=== PATIENT | male | born 1945 | race Caucasian/White ===

== ENCOUNTER → 2023-07-05 07:36 | Outpatient (REF) | payer MEDICARE, OTHER, SELFPAY ==
[2023-07-05 09:31] LABS: % Basophils 0.5 % (0-2); % Eosinophils 4.3 % (0-6); % Immature Granulocytes 0.2 % (0-0.5); % Lymphocytes 27.6 % (20.5-51.1); % Monocytes 13.8 % (1.7-9.3); % Neutrophils 53.6 % (42.2-75.2); Absolute Eosinophils 0.2 10^3/uL (0-0.7); Absolute Lymphocytes 1.2 10^3/uL (1.2-3.4); Absolute Monocytes 0.6 10^3/uL (0.1-0.6); Absolute Neutrophils 2.3 10^3/uL (1.4-6.5); Hematocrit 44.5 % (39.0-52.0); Hemoglobin 15.2 g/dL (13.0-18.0); Mean Corp Hgb Conc. 34.2 g/dL (33.0-37.0); Mean Corpuscular Hgb 32.8 pg (27.0-31.0); Mean Corpuscular Volume 95.9 fL (80.0-94.0); Mean Platelet Volume 9.3 fL (7.4-10.4); Nucleated Red Blood Cells % 0 % (-); Platelet Count 193 10^3/uL (130-400); Red Blood Cell Count 4.64 10^6/uL (4.70-6.10); Red Cell Dist. Width 13.3 % (11.5-14.5); White Blood Cell Count 4.2 10^3/uL (4.8-10.8)
[2023-07-05 09:46] LABS: Urine Albumin Trace (Neg - Trace); Urine Bilirubin Negative (Negative); Urine Character Clear (Clear); Urine Color Yellow; Urine Glucose Negative (Negative); Urine Ketone Negative (Negative); Urine Leukocyte 1+ (Negative); Urine Nitrite Negative (Negative); Urine Occult Blood Negative (Negative); Urine Specific Gravity 1.015 (<1.030); Urine Urobilinogen Negative (Neg - 1+)
[2023-07-05 10:03] LABS: ALT (SGPT) 21 U/L (0-50); AST (SGOT) 43 U/L (17-59); Albumin 4.2 g/dl (3.5-5.0); Alkaline Phosphatase 68 U/L (38-126); Blood Urea Nitrogen 20 mg/dl (9-20); Calcium 9.9 mg/dl (8.4-10.2); Carbon Dioxide 27 mmol/L (22-30); Chloride 101 mmol/L (98-107); Glucose 100 mg/dl (70-99); Potassium 4.4 mmol/L (3.5-5.1); Sodium 139 mmol/L (135-145); Total Bilirubin 1.4 mg/dl (0.2-1.3); Total Cholesterol 170 mg/dl (50-199); Total Protein 6.8 g/dl (6.3-8.2); Triglyceride 82 mg/dl (10-149); Very Low Density Lipoprotein 16 mg/dl (0-30); eGFR > 60.00
[2023-07-05 10:14] LABS: Free T4 1.13 ng/dl (0.78-2.19)
[2023-07-05 10:27] LABS: Urine Bacteria Moderate (Negative); Urine Red Blood Cell 0-2 /HPF (0-2); Urine White Cell 50-60 /HPF (0-5)
[2023-07-05 10:30] LABS: HDL Cholesterol 108 mg/dl; LDL Cholesterol, Calculated 46 mg/dl
[2023-07-05 10:57] LABS: TSH 0.39 uIU/ml (0.47-4.68)
[2023-07-06 23:44] LABS: PSA Total 4.7 ng/mL (0.0-4.0)
== END ==
LOC: HWLAB 07:36
PROVIDERS: ATTENDING PHYSICIAN Family Medicine
DX: E78.00 Pure hypercholesterolemia, unspecified (principal); N40.0 Benign prostatic hyperplasia without lower urinary tract symptoms; E03.9 Hypothyroidism, unspecified
CPT/HCPCS: 36415; 80053; 80061; 81003; 81015; 84153; 84154; 84439; 84443; 85025

== ENCOUNTER 2023-08-31 07:47 | Emergency (ER) | payer MEDICARE, OTHER, SELFPAY ==
[2023-08-31 07:50] VITALS: BP 132/56
--- NOTE | 2023-08-31 07:59 | ED.GENMED ---
History of Present Illness
General
Chief Complaint: Fainting Sensation
Time Seen by Provider: 08/31/23 07:49
Travel History
Have you had any contact with someone who has COVID-19?: No
Do you have any symptoms of coronavirus? Fever > 100 degrees, chills, cough, shortness of breath, sore throat, loss of taste or smell, muscle aches, or headache?: No
History of Present Illness
History of Present Illness:
78-year-old male with history of coronary artery disease status post CABG and repeat stenting, sick sinus syndrome status post pacemaker, hypertension, and hyperlipidemia presents to the emergency department for evaluation of a near syncopal event
that occurred after his routine gym workout this morning. He felt dizziness coming on and was able to lower himself to the ground without falling. Denies complete loss of consciousness. Feels well currently. Denies chest pain or shortness of
breath. Reports having a glass of orange juice prior to his workout today. No recent illnesses. Does note that he is currently on antibiotics prophylactically after recent scalp Mohs surgery, denies any diarrhea associated with this. Otherwise
no new medications
Past History
Past History
ED Past Medical History: CAD, Hypercholesterolemia, Hypothyroidism and Other (Glaucoma, Mobitz type I Wenckebach, herniated disc)
ED Past Surgical History: Cardiac (CABG �3 2000, PCI stent to 90% left main 06/22/2016 EF 54%)
Social History
Tobacco: Non-smoker
Alcohol: Occasional
Drug: None
Personal:
Living: with family
Review of Systems
Review of Systems
Allergies reviewed?: Yes
All Other Systems: ROS reviewed and negative except as documented in HPI and ROS
Phy Exam
Physical Exam
Physical Exam:
GEN: Well appearing, NAD, WDWN
HEENT: Oral mucosa moist, no scleral icterus, well-approximated incisions with intact external sutures to the vertex of the scalp from prior Mohs surgery, no significant erythema or discharge
Cardiac: Regular rate and rhythm, no murmurs
Lung: No respiratory distress, no tachypnea, lungs clear to auscultation bilaterally
MSK: No gross deformity or injuries
Skin: Good color, no pallor or jaundice, no rashes
Neuro: AO x3, moves all extremities freely, cranial nerves II through XII grossly intact
Psych: Calm, cooperative
Course
Orders/Labs/Results
Orders:
Orders
08/31/23 07:48
EKG [Electrocardiogram (*1)] Urgent
Reason for Study: Fatigue / Weakness
EKG- Treatment ONCE
08/31/23 08:00
Complete Blood Count/With Diff Urgent
Comprehensive Metabolic Panel Urgent
08/31/23 08:42
0.9% Sodium Chloride 500 ml [Nss] 500 ml IV BOLUS
Abnormal Lab Results
08/31/23
08:00
RBC 4.37 L 10^6/uL
(4.70-6.10)
MCV 99.3 H fL
(80.0-94.0)
MCH 33.0 H pg
(27.0-31.0)
Absolute Lymphs (auto) 1.1 L 10^3/uL
(1.2-3.4)
Absolute Monos (auto) 0.7 H 10^3/uL
(0.1-0.6)
Lymphocytes % 17.5 L %
(20.5-51.1)
Monocytes % 10.3 H %
(1.7-9.3)
Glucose 144 H mg/dl
(70-99)
08/31/23 08:00
08/31/23 08:00
Vital Signs
Initial and Last Documented VS:
Initial Vital Signs
Temp Pulse Resp BP Pulse Ox
97.9 F 64 19 132/56 100
08/31/23 07:50 08/31/23 07:50 08/31/23 07:50 08/31/23 07:50 08/31/23 07:50
Last Documented Vital Signs
Temp Pulse Resp BP Pulse Ox
97.9 F 62 19 136/70 100
08/31/23 07:50 08/31/23 10:03 08/31/23 07:50 08/31/23 10:03 08/31/23 07:50
MDM/Problems Addressed
MDM/Problems Addressed:
Patient did have transient hypotension in the emergency department however this resolved with IV fluids. His device interrogation revealed no events associated with this near syncopal event. Likely vasovagal as it occurred after exercise.
Remained clinically stable otherwise the emergency department normal labs. Suitable for discharge to home
Comment
Comment:
EKG independently interpreted by me shows a AV paced rhythm at a rate of 63, QTc of 487
*Critical Care Note
Total Time (30-74mins, 75-104mins- exclusive of procedures): Not Applicable
ED Attending Note
-
Portions of this chart may have been created with voice recognition software.� Occasional wrong word or��sound alike� substitutions may have occurred due to the inherent limitations of voice recognition software.
Discharge Plan
Departure
Patient Disposition: Home (Routine Discharge)
Date of Disposition: 08/31/23
Time of Disposition: 09:38
Patient with high blood pressure during this ER visit?: No
Discharge Problem:
Near syncope
Instructions: Near Fainting (DC)
Prescriptions:
No Action
simvastatin 10 MG tablet
10 mg PO QPM
coenzyme [id number] [Co Q-10 (with Vit E)] 1 EACH capsule
1 cap PO DAILY
nitroglycerin 0.4 MG tablet, sublingual
0.4 mg sublingual [id number] PRN (Reason: chest pain) Qty: 25 2RF
isosorbide mononitrate 60 MG tablet extended release 24 hr
60 mg PO DAILY
levothyroxine 88 MCG tablet
88 mcg PO DAILY
magnesium oxide 500 MG tablet
500 mg PO DAILY
cholecalciferol (vitamin D3) 1,000 UNITS tablet
1,000 units PO DAILY
clopidogrel 75 MG tablet
75 mg PO QPM
vitamin K2 40 MCG tablet
40 mcg PO DAILY
tamsulosin 0.4 MG capsule
0.4 mg PO QPM
docusate sodium 100 MG capsule
100 mg PO DAILY
B-complex with vitamin C 1 CAPLET tablet
1 cap PO DAILY
vitamin E (dl, acetate) 100 UNITS capsule
100 units PO DAILY
doxycycline hyclate 100 MG capsule
100 mg PO Q12 6 Days Qty: 12 0RF
cefuroxime axetil 500 MG tablet
500 mg PO BID 6 Days Qty: 12 0RF
doxycycline hyclate 100 mg tablet
100 mg PO BID Qty: 14 0RF
Referrals:
Rodger Vo MD [Family Provider] -
Interventions
Interventions:
*Risk Screen - Suicide Last Done: 08/31/23 07:50
*General Assessment Last Done: 08/31/23 07:50
*Neglect/Abuse Screening Last Done: 08/31/23 07:50
ED- Fall Risk Assessment Last Done: 08/31/23 07:55
*ED COVID-19 Vaccine History Last Done: 08/31/23 07:50
*Nursing Disposition Last Done: 08/31/23 10:32
ED- Cardiac Assessment Last Done: 08/31/23 07:55
ED- Neurological Assessment Last Done: 08/31/23 07:55
Discharge Date and Time
Discharge Date/Time: 08/31/23 10:34
Print Language: [place]
[2023-08-31 08:23] LABS: % Basophils 0.5 % (0-2); % Eosinophils 2.5 % (0-6); % Immature Granulocytes 0.3 % (0-0.5); % Lymphocytes 17.5 % (20.5-51.1); % Monocytes 10.3 % (1.7-9.3); % Neutrophils 68.9 % (42.2-75.2); Absolute Eosinophils 0.2 10^3/uL (0-0.7); Absolute Lymphocytes 1.1 10^3/uL (1.2-3.4); Absolute Monocytes 0.7 10^3/uL (0.1-0.6); Absolute Neutrophils 4.4 10^3/uL (1.4-6.5); Hematocrit 43.4 % (39.0-52.0); Hemoglobin 14.4 g/dL (13.0-18.0); Mean Corp Hgb Conc. 33.2 g/dL (33.0-37.0); Mean Corpuscular Volume 99.3 fL (80.0-94.0); Mean Platelet Volume 9.3 fL (7.4-10.4); Nucleated Red Blood Cells % 0 % (-); Platelet Count 207 10^3/uL (130-400); Red Blood Cell Count 4.37 10^6/uL (4.70-6.10); Red Cell Dist. Width 13.2 % (11.5-14.5); White Blood Cell Count 6.3 10^3/uL (4.8-10.8)
[2023-08-31 08:36] LABS: ALT (SGPT) 23 U/L (0-50); AST (SGOT) 38 U/L (17-59); Albumin 4.5 g/dl (3.5-5.0); Alkaline Phosphatase 70 U/L (38-126); Blood Urea Nitrogen 19 mg/dl (9-20); Calcium 9.6 mg/dl (8.4-10.2); Carbon Dioxide 29 mmol/L (22-30); Chloride 100 mmol/L (98-107); Estimated Creatinine Clearance 49 ml/min; Glucose 144 mg/dl (70-99); Potassium 4.5 mmol/L (3.5-5.1); Sodium 136 mmol/L (135-145); Total Bilirubin 1.2 mg/dl (0.2-1.3); Total Protein 7.2 g/dl (6.3-8.2); eGFR > 60.00
[2023-08-31] MEDS: NSS 500 IV (08:55)
[2023-08-31 10:03] VITALS: BP 136/70
== END 2023-08-31 10:34 | disposition home or self-care (01) ==
LOC: EMR 07:47
PROVIDERS: Physician Assistant; EMERGENCY PHYSICIAN Emergency Medicine; FAMILY PHYSICIAN Family Medicine
DX: R55 Syncope and collapse (principal); I25.10 Atherosclerotic heart disease of native coronary artery without angina pectoris; I10 Essential (primary) hypertension; E78.00 Pure hypercholesterolemia, unspecified; Z95.1 Presence of aortocoronary bypass graft; Z95.0 Presence of cardiac pacemaker
CPT/HCPCS: 99284; 96360; 93288; 80053; 85025; 93005

== ENCOUNTER 2024-03-27 07:55 | Emergency (ER) | payer MEDICARE, OTHER, SELFPAY ==
[2024-03-27 08:06] VITALS: BP 133/65
[2024-03-27 08:09] VITALS: BP 133/65
[2024-03-27 08:14] VITALS: BMI 24.7
--- NOTE | 2024-03-27 08:22 | ED.GENMED ---
History of Present Illness
<KELBY Chavis - Last Filed: 03/27/24 13:34>
General
Chief Complaint: Fainting/Passed Out
Source: patient
Exam Limitations: none
Time Seen by Provider: 03/27/24 08:05
Nursing documentation reviewed up to this point in time: agreed with
History of Present Illness
History of Present Illness:
Patient is an 78-year-old male who presents to the ER via EMS for syncopal episode. Patient was at the gym doing his workout like normal and afterward was talking to his friends and then started to walk to get his coat on. He started to feel
lightheaded like he was in a pass out so he took a drink of water and then apparently passed out and hit his left ear on the treadmill.
Patient presents with a laceration to his left ear. He presents awake alert. He reports he felt like he was going to pass out and that is what he took to drink water. He denies any headache. He denies any chest pain or shortness breath prior to
passing out. He did not eat this morning but normally does not eat prior to going to the gym. He is on close clopidogrel.
Past History
<KELBY Chavis - Last Filed: 03/27/24 13:34>
Past History
ED Past Medical History: CAD, Hypercholesterolemia, Hypothyroidism and Other (Glaucoma, Mobitz type I Wenckebach, herniated disc)
ED Past Surgical History: Cardiac (CABG �3 2000, PCI stent to 90% left main 06/22/2016 EF 54%)
Social History
Tobacco: Non-smoker
Alcohol: Occasional
Drug: None
Personal:
Living: with family
Review of Systems
<KELBY Chavis - Last Filed: 03/27/24 13:34>
Review of Systems
Allergies reviewed?: Yes
Constitutional: Reports no symptoms; Denies fever, fatigue or chills
EENT: Reports no symptoms
Respiratory: Reports no symptoms
Cardiac: Reports syncope; Denies chest pain, diaphoresis or palpitations
ABD/GI: Reports no symptoms
: Reports no symptoms
Musculoskeletal: Reports no symptoms
Skin: Reports no symptoms
Neurological: Reports no symptoms
Psychiatric: Reports no symptoms
Phy Exam
<KELBY Chavis - Last Filed: 03/27/24 13:34>
General Physical Exam
General Presentation: no apparent distress
General age: appears stated age
General Skin: warm and dry
General Habitus: elderly
General Mental: alert
General Hydration: appears well hydrated
ENT Exam
ENT Exam: other (+ oozing abrasion to inner ear )
Additional ENT: + hematoma to sreedhar
Cardiovascular Exam
Cardiovascular Exam: regular rate/rhythm, no murmur and normal peripheral pulses
Pulmonary Exam
Pulmonary Exam: lungs clear and no respiratory distress
Neurological Exam
Neurological Exam: alert and oriented x3
Musculoskeletal Exam
Musculoskeletal Exam: full ROM
Skin Exam
Skin Exam: normal color and warm/dry
Psychiatric Exam
Psychiatric Exam: normal mood/affect
Course
<KELBY Chavis - Last Filed: 03/27/24 13:34>
Orders/Labs/Results
Orders:
Orders
03/27/24 08:04
EKG [Electrocardiogram (*1)] Urgent
Reason for Study: Syncope
EKG- Treatment ONCE
03/27/24 08:17
CT Head W/o Iv Contrast Urgent
Comment:
Reason For Exam: trauma/syncope
03/27/24 08:20
CT Cervical Spine W/o Iv Contr Urgent
Comment:
Reason For Exam: trauma
03/27/24 08:25
Complete Blood Count/With Diff Urgent
03/27/24 08:55
Comprehensive Metabolic Panel Urgent
Abnormal Lab Results
03/27/24 03/27/24
08:25 08:55
WBC 4.5 L 10^3/uL
(4.8-10.8)
RBC 4.17 L 10^6/uL
(4.70-6.10)
MCV 99.3 H fL
(80.0-94.0)
MCH 33.6 H pg
(27.0-31.0)
Absolute Lymphs (auto) 1.0 L 10^3/uL
(1.2-3.4)
Monocytes % 10.6 H %
(1.7-9.3)
Carbon Dioxide 31 H mmol/L
(22-30)
Glucose 112 H mg/dl
(70-99)
03/27/24 08:25
03/27/24 08:55
Vital Signs
Initial and Last Documented VS:
Initial Vital Signs
Pulse Ox
96
03/27/24 08:01
Last Documented Vital Signs
Temp Pulse Resp BP Pulse Ox
97.6 F 67 13 135/74 98
03/27/24 08:06 03/27/24 10:15 03/27/24 10:15 03/27/24 10:40 03/27/24 10:40
Youth Nutritional Monitor consulted with Physician
Youth Nutritional Monitor consulted with physician?: Yes
Name of Physician Consulted: Daiana
<Daniel Ahmadi MD - Last Filed: 03/27/24 11:39>
Orders/Labs/Results
Orders:
Orders
03/27/24 08:04
EKG [Electrocardiogram (*1)] Urgent
Reason for Study: Syncope
EKG- Treatment ONCE
03/27/24 08:17
CT Head W/o Iv Contrast Urgent
Comment:
Reason For Exam: trauma/syncope
03/27/24 08:20
CT Cervical Spine W/o Iv Contr Urgent
Comment:
Reason For Exam: trauma
03/27/24 08:25
Complete Blood Count/With Diff Urgent
03/27/24 08:55
Comprehensive Metabolic Panel Urgent
Abnormal Lab Results
03/27/24 03/27/24
08:25 08:55
WBC 4.5 L 10^3/uL
(4.8-10.8)
RBC 4.17 L 10^6/uL
(4.70-6.10)
MCV 99.3 H fL
(80.0-94.0)
MCH 33.6 H pg
(27.0-31.0)
Absolute Lymphs (auto) 1.0 L 10^3/uL
(1.2-3.4)
Monocytes % 10.6 H %
(1.7-9.3)
Carbon Dioxide 31 H mmol/L
(22-30)
Glucose 112 H mg/dl
(70-99)
03/27/24 08:25
03/27/24 08:55
Vital Signs
Initial and Last Documented VS:
Initial Vital Signs
Pulse Ox
96
03/27/24 08:01
Last Documented Vital Signs
Temp Pulse Resp BP Pulse Ox
97.6 F 67 13 135/74 98
03/27/24 08:06 03/27/24 10:15 03/27/24 10:15 03/27/24 10:40 03/27/24 10:40
<KELBY Chavis - Last Filed: 03/27/24 13:34>
MDM/Problems Addressed
Differential Diagnosis Includes:
Not limited to vasovagal syncope, ear abrasion/laceration/hematoma dehydration, head injury
MDM/Problems Addressed:
Patient is an 6-year-old male who was at the gym was done his workout talking to his friend and when he was walking he felt lightheaded took a drink of water and passed out. He hit his left ear on a treadmill and sustained an abrasion/laceration.
Patient does prep with a hematoma to this ear. He denies any headache no nausea vomiting no chest pain or shortness of breath prior to fall. CT head and cervical spine are negative. Ear was irrigated this will need drainage evacuation of hematoma
and he is on Plavix. I did discuss this with the ENT. Regarding his syncopal episode we will check and interrogate pacemaker however patient is well-appearing he did not eat prior to the gym likely component of this and/vagal episode. Will
interrogate pacemaker then plan for discharge. I did ENT is able to see patient in his office. Patient will get his car and then drive directly to the ENTs office.
Device check functioning appropriately no arrhythmias.
Will d/c w/ ENT and cardiology follow up.
<KELBY Chavis - Last Filed: 03/27/24 13:34>
*Radiology
Radiology exam reviewed: radiology read reviewed
*Pulse Oximetry
Patient hypoxic: no
*EKG
Comparison EKG: no changes
Heart Rate: 63
Rate: normal
Rhythm: other (AV paced)
*Critical Care Note
Total Time (30-74mins, 75-104mins- exclusive of procedures): Not Applicable
<KELBY Chavis - Last Filed: 03/27/24 13:34>
Patient Management
Discussion with other providers: Street Light Lamp Cleaner (ENT)
ED Attending Note
<KELBY Chavis - Last Filed: 03/27/24 13:34>
-
Portions of this chart may have been created with voice recognition software.� Occasional wrong word or��sound alike� substitutions may have occurred due to the inherent limitations of voice recognition software.
<Daniel Ahmadi MD - Last Filed: 03/27/24 11:39>
ED Attending Note
Patient seen and examined by attending physician: Yes
ED Attending Note:
I have seen and evaluated the patient with a [id number] encounter. I have spoken to the advance practicer provider and involved in the medical history, the physical exam, medical decision making.
Evaluation and management service: agree unless noted differently below.
Results interpretation: agree unless noted differently below.
Focused HPI: 78-year-old male with history as documented notable for CAD status post CABG on dual antiplatelet therapy (aspirin/Plavix) who presents to the emergency room for evaluation after syncopal event with head trauma. Patient is very active
today went to the gym and worked out for quite some time�he says he spent time lifting weights, on the treadmill, on the stair climber. He says that he did not drink enough water and that when he finished his workout and was walking out of the gym
he began to feel lightheaded and he passed out. He says that he fell forward and struck his ear on a nearby treadmill. EMS was called to bring to the hospital. He has some pain and swelling of his left ear. Denies any headache or neck pain.
Denies any back pain. Denies any chest pain or abdominal pain. He denies any pain in his extremities. Denies any numbness or weakness in his extremities. He denies any palpitations, chest pain, shortness of breath preceding his syncopal event
and says that 'I was just dehydrated.'
Physical exam: Awake alert oriented x 3 with a GCS of 15. No cephalhematoma but patient does have left ear hematoma with significant swelling. He has no tenderness in the cervical spine. No tenderness in the thoracic or lumbar spine and no signs
of trauma the back or flank. Extremities atraumatic.
Medical Decision Makin-year-old male presents after syncopal event after finishing his workout. He had a fall with head strike and has a left ear hematoma. Sent for a CT head and cervical spine which were negative for any acute pathology.
EKG shows paced rhythm. Pacemaker interrogated and no events recorded. Labs reviewed and unremarkable. Stable for discharge from syncope perspective. 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
ENT office for drainage pressure dressing.
Discharge Plan
Departure
Patient Disposition: Home (Routine Discharge)
Date of Disposition: 03/27/24
Time of Disposition: 10:16
Patient with high blood pressure during this ER visit?: No
Condition: Fair
Covid-19: Not Applicable
Discharge Problem:
Syncope, Ear hematoma, left, Abrasion
Instructions: Syncope (Fainting) (DC), Hematoma
Prescriptions:
No Action
simvastatin 10 MG tablet
10 mg PO QPM
coenzyme [id number] E [Co Q-10 (with Vit E)] 1 EACH capsule
1 cap PO DAILY
nitroglycerin 0.4 MG tablet, sublingual
0.4 mg sublingual [id number] PRN (Reason: chest pain) Qty: 25 2RF
isosorbide mononitrate 60 MG tablet extended release 24 hr
60 mg PO DAILY
levothyroxine 88 MCG tablet
88 mcg PO DAILY
magnesium oxide 500 MG tablet
500 mg PO DAILY
cholecalciferol (vitamin D3) 1,000 UNITS tablet
1,000 units PO DAILY
clopidogrel 75 MG tablet
75 mg PO QPM
vitamin K2 40 MCG tablet
40 mcg PO DAILY
tamsulosin 0.4 MG capsule
0.4 mg PO QPM
docusate sodium 100 MG capsule
100 mg PO DAILY
B-complex with vitamin C 1 CAPLET tablet
1 cap PO DAILY
vitamin E (dl, acetate) 100 UNITS capsule
100 units PO DAILY
doxycycline hyclate 100 MG capsule
100 mg PO Q12 6 Days Qty: 12 0RF
cefuroxime axetil 500 MG tablet
500 mg PO BID 6 Days Qty: 12 0RF
doxycycline hyclate 100 mg tablet
100 mg PO BID Qty: 14 0RF
Referrals:
Myles Hodgson MD [Active] -
Brady Cleveland MD [Active] -
UNKNOWN - PT DOES,NOT KNOW [Family Provider] -
Activity Restrictions/Additional Instructions:
As discussed stay well-hydrated. Please go directly to ear nose and throat office for drainage of this left ear hematoma.
Stay well-hydrated today. 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 Please call to make an appointment today. Return if any worsening of symptoms.
Interventions
Interventions:
*Risk Screen - Suicide Last Done: 03/27/24 08:06
*General Assessment Last Done: 03/27/24 08:06
*Neglect/Abuse Screening Last Done: 03/27/24 08:06
ED- Fall Risk Assessment Last Done: 03/27/24 08:16
*ED COVID-19 Vaccine History Last Done: 03/27/24 08:17
*Nursing Disposition Last Done: 03/27/24 10:40
ED- Cardiac Assessment Last Done: 03/27/24 08:16
ED- Neurological Assessment Last Done: 03/27/24 08:16
Discharge Date and Time
Discharge Date/Time: 03/27/24 10:41
Print Language: CITIZEN OF [place]
[2024-03-27 08:43] LABS: % Basophils 0.4 % (0-2); % Immature Granulocytes 0.2 % (0-0.5); % Lymphocytes 23.1 % (20.5-51.1); % Monocytes 10.6 % (1.7-9.3); % Neutrophils 61.7 % (42.2-75.2); Absolute Eosinophils 0.2 10^3/uL (0-0.7); Absolute Monocytes 0.5 10^3/uL (0.1-0.6); Absolute Neutrophils 2.7 10^3/uL (1.4-6.5); Hematocrit 41.4 % (39.0-52.0); Mean Corp Hgb Conc. 33.8 g/dL (33.0-37.0); Mean Corpuscular Hgb 33.6 pg (27.0-31.0); Mean Corpuscular Volume 99.3 fL (80.0-94.0); Mean Platelet Volume 9.2 fL (7.4-10.4); Nucleated Red Blood Cells % 0 % (-); Platelet Count 166 10^3/uL (130-400); Red Blood Cell Count 4.17 10^6/uL (4.70-6.10); Red Cell Dist. Width 13.1 % (11.5-14.5); White Blood Cell Count 4.5 10^3/uL (4.8-10.8)
[2024-03-27 09:19] LABS: ALT (SGPT) 22 U/L (0-50); AST (SGOT) 39 U/L (17-59); Albumin 4.4 g/dl (3.5-5.0); Alkaline Phosphatase 59 U/L (38-126); Blood Urea Nitrogen 19 mg/dl (9-20); Calcium 9.8 mg/dl (8.4-10.2); Carbon Dioxide 31 mmol/L (22-30); Chloride 101 mmol/L (98-107); Estimated Creatinine Clearance 61 ml/min; Glucose 112 mg/dl (70-99); Potassium 4.5 mmol/L (3.5-5.1); Sodium 141 mmol/L (135-145); eGFR > 60.00
[2024-03-27 09:50] VITALS: BP 134/61
[2024-03-27 10:00] VITALS: BP 126/69
[2024-03-27 10:40] VITALS: BP 135/74
== END 2024-03-27 10:41 | disposition home or self-care (01) ==
LOC: EMR 07:55
PROVIDERS: Nurse Practitioner; EMERGENCY PHYSICIAN Emergency Medicine
DX: R55 Syncope and collapse (principal); S00.432A Contusion of left ear, initial encounter; S00.412A Abrasion of left ear, initial encounter; W19.XXXA Unspecified fall, initial encounter; W22.09XA Striking against other stationary object, initial encounter; E03.9 Hypothyroidism, unspecified; E78.00 Pure hypercholesterolemia, unspecified; I25.10 Atherosclerotic heart disease of native coronary artery without angina pectoris; H40.9 Unspecified glaucoma; Z79.02 Long term (current) use of antithrombotics/antiplatelets; Z95.0 Presence of cardiac pacemaker; Z95.1 Presence of aortocoronary bypass graft; Z95.5 Presence of coronary angioplasty implant and graft
CPT/HCPCS: 93288; 99285; 70450; 72125; 80053; 85025; 93005

== ENCOUNTER → 2024-07-04 07:30 | Outpatient (REF) | payer MEDICARE, OTHER, SELFPAY ==
[2024-07-04 09:40] LABS: % Basophils 0.4 % (0-2); % Eosinophils 4.2 % (0-6); % Immature Granulocytes 0.4 % (0-0.5); % Lymphocytes 25.6 % (20.5-51.1); % Monocytes 12.9 % (1.7-9.3); % Neutrophils 56.5 % (42.2-75.2); Absolute Eosinophils 0.2 10^3/uL (0-0.7); Absolute Lymphocytes 1.2 10^3/uL (1.2-3.4); Absolute Monocytes 0.6 10^3/uL (0.1-0.6); Absolute Neutrophils 2.7 10^3/uL (1.4-6.5); Hematocrit 44.4 % (39.0-52.0); Hemoglobin 14.8 g/dL (13.0-18.0); Mean Corp Hgb Conc. 33.3 g/dL (33.0-37.0); Mean Corpuscular Volume 98.9 fL (80.0-94.0); Mean Platelet Volume 9.1 fL (7.4-10.4); Nucleated Red Blood Cells % 0 % (-); Platelet Count 179 10^3/uL (130-400); Red Blood Cell Count 4.49 10^6/uL (4.70-6.10); Red Cell Dist. Width 13.3 % (11.5-14.5); White Blood Cell Count 4.8 10^3/uL (4.8-10.8)
[2024-07-04 09:48] LABS: ALT (SGPT) 25 U/L (0-50); AST (SGOT) 42 U/L (17-59); Albumin 4.2 g/dl (3.5-5.0); Alkaline Phosphatase 70 U/L (38-126); Blood Urea Nitrogen 23 mg/dl (9-20); Calcium 9.4 mg/dl (8.4-10.2); Carbon Dioxide 31 mmol/L (22-30); Chloride 103 mmol/L (98-107); Glucose 94 mg/dl (70-99); HDL Cholesterol 100 mg/dl; LDL Cholesterol, Calculated 66 mg/dl; Potassium 4.6 mmol/L (3.5-5.1); Sodium 140 mmol/L (135-145); Total Bilirubin 1.2 mg/dl (0.2-1.3); Total Cholesterol 180 mg/dl (50-199); Total Protein 7.1 g/dl (6.3-8.2); Triglyceride 70 mg/dl (10-149); Very Low Density Lipoprotein 14 mg/dl (0-30); eGFR > 60.00
[2024-07-04 10:15] LABS: Urine Albumin 1+ (Neg - Trace); Urine Bilirubin Negative (Negative); Urine Character Clear (Clear); Urine Color Yellow; Urine Glucose Negative (Negative); Urine Ketone Negative (Negative); Urine Leukocyte Negative (Negative); Urine Nitrite Positive (Negative); Urine Occult Blood 4+ (Negative); Urine Urobilinogen Negative (Neg - 1+)
[2024-07-04 10:27] LABS: Free T4 0.99 ng/dl (0.78-2.19)
[2024-07-04 10:41] LABS: TSH 0.77 uIU/ml (0.47-4.68)
[2024-07-04 10:57] LABS: Urine Bacteria Few (Negative); Urine White Cell 26-30 /HPF (0-5)
[2024-07-05 13:49] LABS: PSA Total 4.2 ng/mL (0.0-4.0)
== END ==
LOC: HWLAB 07:30
PROVIDERS: ATTENDING PHYSICIAN Family Medicine
DX: E78.00 Pure hypercholesterolemia, unspecified (principal); E03.9 Hypothyroidism, unspecified; N40.0 Benign prostatic hyperplasia without lower urinary tract symptoms; Z00.00 Encounter for general adult medical examination without abnormal findings
CPT/HCPCS: 36415; 80053; 80061; 81003; 81015; 84153; 84154; 84439; 84443; 85025

== ENCOUNTER → 2025-03-07 07:44 | Outpatient (REF) | payer MEDICARE, OTHER, SELFPAY | LOC: RCS 07:44 | PROVIDERS: ATTENDING PHYSICIAN Nurse Practitioner; FAMILY PHYSICIAN Family Medicine | DX: I10 Essential (primary) hypertension (principal); I25.10 Atherosclerotic heart disease of native coronary artery without angina pectoris | CPT/HCPCS: 93306; Q9950 ==